=== PATIENT | male | born 1990 | race Two or more races ===

== ENCOUNTER 2017-10-18 16:50 | Emergency (ER) | payer SELFPAY ==
[~2017-10-18] VITALS: Ht 162.6 cm; Wt 63.5 kg
[2017-10-18 20:22] VITALS: BP 128/90
== END 2017-10-18 20:23 | disposition home or self-care (01) ==
LOC: ER 16:51
DX: F10.129 Alcohol abuse with intoxication, unspecified (principal); Y90.9 Presence of alcohol in blood, level not specified
CPT/HCPCS: 99283; A4606; Z7610